=== PATIENT | male | born 1965 | race Caucasian/White ===

== ENCOUNTER 2022-04-05 07:15 | Day surgery (SDC) | payer OTHER ==
[2022-04-05] MEDS ORDERED: Ringers Lactate 1,000 ML IV ONE (07:41)
[2022-04-05] MEDS ORDERED: CELECOXIB 100 MG CAPSULE ONE (08:08)
[2022-04-05] MEDS ORDERED: ACETAMINOPHEN 500 MG TAB ONE (08:08)
[2022-04-05] MEDS ORDERED: MIDAZOLAM HCL 2 MG/2 ML INJ ONE (09:00)
[2022-04-05] MEDS ORDERED: LIDOCAINE 2% MPF 5 ML VIAL ONE (09:00)
[2022-04-05] MEDS ORDERED: propofoL 200 MG/20 ML VIAL IV ONE (09:00)
[2022-04-05] MEDS ORDERED: FENTANYL CITR 100 MCG/2 ML ONE ×2 (09:00→09:33)
[2022-04-05] MEDS ORDERED: NEOSTIGMINE 1 MG/ML -10 ML VIAL ONE (09:05)
[2022-04-05] MEDS ORDERED: ONDANSETRON 4 MG/2 ML VIAL ONE (09:05)
[2022-04-05] MEDS ORDERED: GLYCOPYRROLATE 0.2 MG/ML SYR ONE (09:05)
[2022-04-05] MEDS ORDERED: ROCURONIUM 50 MG/5 ML VIAL IV ONE (09:05)
[2022-04-05] MEDS ORDERED: LIDOCAINE JELLY 2%- 5 ML TUBE ONE (09:19)
[2022-04-05] MEDS ORDERED: dexAMETHasone 10 MG/ML VIAL ONE (09:30)
[2022-04-05] MEDS: HYDROMORPHONE HCL 1 MG/ML INJ ONE ×4 (09:58→10:30)
[2022-04-05] MEDS ORDERED: BUPIVACA 0.5%/EPI 0.0005%/PF 30 ML VIAL ONE (10:09)
[2022-04-05] MEDS ORDERED: TRAMADOL HCL 50 MG TAB ONE (11:15)
[2022-04-05 11:41] VITALS: BP 131/78; TEMP 96.5; O2SAT 99
--- NOTE | 2022-04-06 00:55 | OP ---
Date of Procedure: 04/05/2022 Surgeon: MARY BYRD Preoperative Diagnoses: 1.Chronic tonsillitis. 2.Chronic tonsillolithiasis. Postoperative Diagnoses: 1.Chronic tonsillitis. 2.Chronic tonsillolithiasis. Procedure: 1.Tonsillectomy. 2.Partial uvulectomy. Anesthesia: General endotracheal anesthesia. I infiltrated approximately 10 mL of 0.5% Marcaine wit h 1:100,000 epinephrine into bilateral tonsillar fossae, soft palate and uvula. Estimated Blood Loss: Less than 2 mL. Specimens: Uvula tip and bilateral tonsils submitted to Pathology for evaluation. Findings: Bilateral cryptic tonsils with hypertrophy 2+/4 and evidence of tonsillolithiasis and exud ate and papillomatous appearance of the uvula tip with possible leukoplakia. Complications: None. Disposition: Stable. The patient tolerated the procedure well. Indication For Procedure: Patient is a pleasant 56-year-old male who presented to my outpatient clin ic with chronic sore throat and tonsillar infections along with impacted tonsil stones that had been present for multiple years causing chronic throat pain. His condition has been refractory to oral an tibiotics and salt water gargles. Thus, these were indications to bring the patient to operative dolly te for the above-mentioned procedure. He understood. All questions were answered. Risks versus sandy efits and complications explained in detail and a consent form was signed, which was placed in the art. Description Of Procedure: Patient was transferred from the preoperative holding area to the operativ e suite by Department of Anesthesia, placed on the operating table supine, sedated and intubated in n ormal fashion. Table was rotated 90 degrees and the head turban was placed and a moist Ray-Nick was p laced over the upper lip for protection. A shoulder roll was not needed. The McIvor retractor was i ntroduced into the right oral commissure and directed along the endotracheal tube and suspended from the [place] stand. I removed the tonsils by retracting the superior poles midline with straight Allis c lamps and dissecting through the mucosa down the peritonsillar fascial plane with pinpoint needle radha ctrocautery on the 20 setting of coagulation. Dissection continued within the planes whereby the inf erior poles were amputated with suction Bovie. Hemostasis was achieved with suction Bovie. Saline i rrigation was introduced into the oral cavity and removed with suction Bovie. I retracted the soft p alate anteriorly and noticed that the uvula tip had odd mucosal appearance at the tip, which appeared papillomatous, possible leukoplakia. Thus, I removed the tip of the uvula with needlepoint electroc autery and submitted it to pathology for evaluation. Sutures were not needed to reapproximate the mu cosa. I just used suction Bovie for hemostasis. I then looked into the adenoid cavity. There was n o evidence of adenoid tissue. A flexible orogastric tube was inserted into the esophagus and stomach and all fluid contents were removed. I then infiltrated approximately the 10 mL of 0.5% Marcaine wi th 1:100,000 epinephrine into bilateral tonsillar fossae, soft palate, and uvula. I checked all area s for hemostasis and hemostasis was achieved. I then de-suspended the patient from the [place]ud[place] stand. The McIvor retractor was removed and patient's jaw was checked and found to be in proper alignment. He was transferred back to Department of Anesthesia and the head turban was removed. He was extubate d and transferred to the postoperative care unit in stable condition. He will be discharged home on analgesic medication and will follow up in 1 to 2 weeks or sooner if needed. MARBELLA/BONITA Voice ID: [id number] Report ID: [id number]
== END 2022-04-05 11:50 | disposition home or self-care (01) ==
LOC: OR 07:15
PROVIDERS: ATTEND Otolaryngology Facial Plastic Surgery
PROC: 0CBNXZZ Excision of Uvula, External Approach (ICD-10-PCS; 2022-04-05)
PROC: 0CTPXZZ Resection of Tonsils, External Approach (ICD-10-PCS; principal; 2022-04-05 09:00)
DX: J35.8 Other chronic diseases of tonsils and adenoids (principal); J30.1 Allergic rhinitis due to pollen; Z91.018 Allergy to other foods; Z20.822 Contact with and (suspected) exposure to COVID-19
CPT/HCPCS: 88302; 88304 ×2; 42826; 42140; U0002; J2704; J2710; J2250; J3010; J1100; J1170 ×2; J7120; J2405